=== PATIENT | male | born 1940 | race Caucasian/White ===

== ENCOUNTER → 2017-08-01 | Outpatient (CLI) | payer MEDICARE, OTHER ==
[~2017-08-01] MED LIST: ATOR10 PO; ATOR40TA PO; BENEFIBER1 EACH PO; GAVILAX17 GM PO; HYDCOR10 PO; LEVSOD125 PO; LEVSOD137 PO; MILK OF MAGNESIA PO
== END | disposition home or self-care (01) ==
LOC: PLD 07:17 → LAB SHORT 07:17
DX: D48.5 Neoplasm of uncertain behavior of skin (principal)
CPT/HCPCS: 88305